=== PATIENT | female | born 1985 | race Caucasian/White ===

== ENCOUNTER 2018-05-13 20:55 | Emergency (ER) | payer OTHER ==
[~2018-05-13] VITALS: Ht 157.5 cm; Wt 79.4 kg
[~2018-05-13 20:55] MED LIST: ALLEGRA30 MG; CARISOPRODOL 3350 MG PO; CIPROFLOXACIN500 M1; CLARITIN10 M2; FOLIC ACID1 MG; METHOTREXA1 GM/40 ML; NEXIUM 40 MG CA40 M1; PRILOSEC40 MG; PRISTIQ50 MG; SEASONALE1 EACH; TOPAMAX50 MG; VICODIN 5-5001 EACH PO
[2018-05-13] MEDS ORDERED: EFFEXOR XR37.5 MG PO (21:03)
[2018-05-13] MEDS ORDERED: HUMIRA40 MG/0.1 SUBQ (21:05)
[2018-05-13 21:25] LABS: URINE BILIRUBIN NEGATIVE (Negative); URINE BLOOD NEGATIVE (Negative); URINE CLARITY CLEAR; URINE COLOR YELLOW; URINE GLUCOSE-RANDOM NEGATIVE (Negative); URINE KETONES NEGATIVE (Negative); URINE LEUKOCYTES-REFLEX 1+ (Negative); URINE NITRITE-REFLEX NEGATIVE (Negative); URINE PROTEIN NEGATIVE (Negative); URINE UROBILINOGEN 0.2 E.U./dl (0.2-1.0)
[2018-05-13 21:30] LABS: ABSOLUTE LYMPHOCYTES 3.9 thou/uL (0.8-5.3); ABSOLUTE MONOCYTES 0.8 thou/uL (0.0-1.2); ABSOLUTE NEUTROPHILS 3.8 thou/uL (1.6-8.1); BASOPHILS 0.3 %; EOSINOPHILS 0.1 %; HEMATOCRIT 35.5 % (37.0-47.0); HEMOGLOBIN 11.5 gm/dL (12.0-15.0); LYMPHOCYTES 46.1 %; MCH 24.1 pg (26.0-34.0); MCHC 32.4 g/dL (28.0-37.0); MCV 74.5 fL (80.0-100.0); MONOCYTES 8.9 %; MPV 7.4 fl. (7.2-11.1); NUCLEATED RBCS 0 /100WBC; PLATELET COUNT* 288 thou/uL (150-400); POLYS 44.6 %; RBC 4.77 mil/uL (4.20-5.00); RDW-CV 17.1 % (10.5-14.5); WBC 8.4 thou/uL (4.0-11.0)
[2018-05-13 21:37] LABS: SQUAMOUS >10 Many /LPF (0-3)
[2018-05-13 21:38] LABS: CASTS None Seen /LPF (None Seen); CRYSTALS None Seen /LPF (None Seen); URINE RBC None Seen /HPF (0-2); URINE WBC-REFLEX >25 Many /HPF (0-5)
[2018-05-13 21:38] LABS: CALCIUM 8.2 mg/dL (8.5-10.1); CREATININE 0.9 mg/dL (0.6-1.3); POTASSIUM 3.4 mmol/L (3.5-5.1)
[2018-05-13 21:43] LABS: ALBUMIN 3.2 g/dL (3.4-5.0); TOTAL BILIRUBIN 0.2 mg/dL (<0.1-1.0); TOTAL PROTEIN 6.7 g/dL (6.4-8.2)
[2018-05-13] MEDS ORDERED: BACTRIM DS TAB1 EACH PO (21:43)
[2018-05-13 21:54] LABS: TROPONIN-I LEVEL <0.06 ng/mL (<0.06)
[2018-05-13] MEDS ORDERED: ZESTRIL10 MG PO (23:01)
[2018-05-13 23:23] VITALS: BP 140/75
--- NOTE | 2018-05-14 11:26 | EKG ---
[place] [address] ELECTROCARDIOGRAM REPORT Name: MICHAEL BOLDEN Room: [facility]#: [id number] Admission: 05/13/18 Attend Phys: Discharge: 05/13/18 Date of : 83 Report #: [id number] THIS REPORT FOR: //name// [facility] ED Test Date: 2018-05-13 Test Time: 21:12:45 Pat Name: MICHAEL BOLDEN Department: Room: Gender: F [employer] Technician: Jovan METCALF : 1985 Requested By: Annelise Zuniga Order Number: [id number] Diann MD: Jerald Mina Measurements Intervals [place] Rate: 78 P: 54 [place]: 129 QRS: 31 QRSD: 87 T: 19 QT: 352 QTc: 401 Interpretive Statements Sinus rhythm Baseline wander in lead(s) V4,V5 No previous ECG available for comparison Electronically Signed On 05-14-2018 11:26:07 ELIGIBILITY EXAMINER by Jerald Mina [email or web address] <ELECTRONICALLY SIGNED> By: Jerald Mina MD, [facility] 05/14/18 1126 11 11 Jerald Mina MD, FACC /EPI
== END 2018-05-13 23:25 | disposition home or self-care (01) ==
LOC: M.ERS 20:55
PROVIDERS: Physician Assistant
DX: I10 Essential (primary) hypertension (principal); N39.0 Urinary tract infection, site not specified; R01.1 Cardiac murmur, unspecified; K21.9 Gastro-esophageal reflux disease without esophagitis; M19.90 Unspecified osteoarthritis, unspecified site; Z87.442 Personal history of urinary calculi; Z88.5 Allergy status to narcotic agent

== ENCOUNTER → 2018-05-26 | Outpatient (CLI) | payer OTHER ==
[~2018-05-26] MED LIST changes: +BACTRIM DS TAB1 EACH PO; +EFFEXOR XR37.5 MG PO; +HUMIRA40 MG/0.1 SUBQ; +ZESTRIL10 MG PO
--- NOTE | 2018-05-27 17:02 | 2DMMODE ---
[place] [address] 2 D/M-MODE ECHOCARDIOGRAM Name: KIMIMICHAEL Room: [facility]#: [id number] Admission: 05/26/18 Attend Phys: Jerald Brooks, Discharge: Date of : 83 Date of Service: 05/27/18 1702 Report #: [id number] THIS REPORT FOR: //name// APPROVED REPORT Study performed: 05/26/2018 08:56:26 EXAM: Comprehensive 2D, Doppler, and color-flow Echocardiogram Patient Location: Out-Patient Status: routine BSA: 1.82 HR: 71 bpm BP: 120/80 mmHg Other Information Study Quality: Good Indications Murmur 2D Dimensions IVSd: 9.45 (7-11mm) LVOT Diam: 20.44 (18-24mm) LVDd: 38.39 mm PWd: 9.30 (7-11mm) Ascending Ao: 30.37 (22-36mm) LVDs: 24.64 (25-40mm) Aortic Root: 28.74 mm Volumes Left Atrial Volume (Systole) LA ESV Index: 12.30 mL/m2 Aortic Valve AoV Peak Jimy.: 1.39 m/s AO Peak Gr.: 7.77 mmHg LVOT Max P.90 mmHg AO Mean Gr.: 4.43 mmHg LVOT Mean P.38 mmHg LVOT Max V: 1.11 m/s AO V2 VTI: 28.13 cm LVOT Mean V: 0.70 m/s SHELLIE (VTI): 2.60 cm2 LVOT V1 VTI: 22.25 cm Mitral Valve E/A Ratio: 1.30 MV Decel. Time: 167.83 ms MV E Max Jimy.: 0.85 m/s MV PHT: 48.67 [place] [address] 2 D/M-MODE ECHOCARDIOGRAM Name: JEM BOLDENBILL ABEBE Room: [facility]#: [id number] Admission: 05/26/18 Attend Phys: Jerald Brooks, Discharge: Date of : 83 Date of Service: 05/27/18 1702 Report #: [id number] MVA (PHT): 4.52 cm2 TDI E/Lateral E': 5.67 E/Medial E': 9.44 Medial E' Jimy.: 0.09 m/s Lateral E' Jimy.: 0.15 m/s Pulmonary Valve PV Peak Jimy.: 1.11 m/s PV Peak Gr.: 4.92 mmHg Left Ventricle The left ventricle is normal size. There is normal LV segmental wall motion. There is normal left ventricular wall thickness. Left ventricular systolic function is normal. The left ventricular ejection fraction is within the normal range. LVEF is 55-60%. The left ventricular diastolic function is normal. Right Ventricle The right ventricle is normal size. The right ventricular systolic function is normal. Atria The left atrium size is normal. The right atrium size is normal. Aortic Valve Mild aortic valve sclerosis. No aortic regurgitation is present. There is no aortic valvular stenosis. Mitral Valve The mitral valve is normal in structure. Trace mitral regurgitation. No evidence of mitral valve stenosis. Tricuspid Valve The tricuspid valve is normal in structure. There is no tricuspid valve regurgitation noted. Pulmonic Valve The pulmonary valve is normal in structure. Trace pulmonic regurgitation. Great Vessels The aortic root is normal in size. IVC is normal in size and collapses >50% with [place] [address] 2 D/M-MODE ECHOCARDIOGRAM Name: KIMIMICHAEL Room: [facility]#: [id number] Admission: 05/26/18 Attend Phys: Jerald Brooks, Discharge: Date of : 83 Date of Service: 05/27/18 1702 Report #: [id number] There is no pericardial effusion. <Conclusion> The left ventricle is normal size. There is normal left ventricular wall thickness. Left ventricular systolic function is normal. The left ventricular ejection fraction is within the normal range. LVEF is 55-60%. The left ventricular diastolic function is normal. The right ventricle is normal size. The left atrium size is normal. Mild aortic valve sclerosis. No aortic regurgitation is present. There is no aortic valvular stenosis. The mitral valve is normal in structure. The tricuspid valve is normal in structure. IVC is normal in size and collapses >50% with inspiration. There is no pericardial effusion. There is normal LV segmental wall motion. <ELECTRONICALLY SIGNED> By: Rubin Chopra MD, FACC 05/27/181701 01 01 Rubin Chopra MD, FACC /INF
== END ==
LOC: M.CRD 08:41
DX: I35.8 Other nonrheumatic aortic valve disorders (principal); I10 Essential (primary) hypertension; I15.0 Renovascular hypertension; E53.8 Deficiency of other specified B group vitamins; D50.0 Iron deficiency anemia secondary to blood loss (chronic)